=== PATIENT | male | born 1955 | race Caucasian/White ===

== ENCOUNTER → 2017-12-30 | Outpatient (CLI) | payer BC | LOC: GMAE 14:22 | PROVIDERS: ATTEND Family Medicine | DX: Z00.01 Encounter for general adult medical examination with abnormal findings (principal) ==

== ENCOUNTER → 2019-02-09 | Outpatient (CLI) | payer BC | LOC: GMAE 15:01 | PROVIDERS: ATTEND Family Medicine | DX: Z00.01 Encounter for general adult medical examination with abnormal findings (principal) ==

== ENCOUNTER → 2019-06-08 | Outpatient (CLI) | payer BC | LOC: LAB.O 17:20 | PROVIDERS: ATTEND Emergency Medicine | DX: M13.10 Monoarthritis, not elsewhere classified, unspecified site (principal); R60.9 Edema, unspecified ==

== ENCOUNTER → 2019-06-09 | Outpatient (CLI) | payer BC ==
--- NOTE | 2019-06-10 13:15 | US ---
EXAM DESCRIPTION: Lower Extremity LT (accession [id number]), Lower Extremity RT (accession [id number]): Ultrasound. CLINICAL HISTORY: LOCALIZED EDEMA COMPARISON: None Available. TECHNIQUE: Two -dimensional and doppler sonographic evaluation of the deep venous system of the bilateral lower extremities. FINDINGS: Doppler evaluation shows normal color flow and normal phasicity and augmentation of the bilateral common femoral veins, junctions with the bilateral proximal saphenous veins, femoral veins, popliteal veins, greater saphenous veins,, peroneal and posterior tibial veins. A superficial vein on the medial calf showed decreased color flow and venous waveforms. These veins showed normal occlusion with transducer pressure. Two-dimensional survey showed no echogenic clot within these veins. Echogenic thrombus was seen in the superficial medial calf vein. IMPRESSION: Duplex ultrasound evaluation of the bilateral lower extremity deep venous systems showing no evidence of thrombosis. Thrombosis in a superficial medial calf vein is not clinically significant. Electronically signed by: Best Looney MD 06/10/2019 1:13 PM TYPE CASTING MACHINE OPERATOR
--- NOTE | 2019-06-10 13:15 | US ---
EXAM DESCRIPTION: Lower Extremity LT (accession [id number]), Lower Extremity RT (accession [id number]): Ultrasound. CLINICAL HISTORY: LOCALIZED EDEMA COMPARISON: None Available. TECHNIQUE: Two -dimensional and doppler sonographic evaluation of the deep venous system of the bilateral lower extremities. FINDINGS: Doppler evaluation shows normal color flow and normal phasicity and augmentation of the bilateral common femoral veins, junctions with the bilateral proximal saphenous veins, femoral veins, popliteal veins, greater saphenous veins,, peroneal and posterior tibial veins. A superficial vein on the medial calf showed decreased color flow and venous waveforms. These veins showed normal occlusion with transducer pressure. Two-dimensional survey showed no echogenic clot within these veins. Echogenic thrombus was seen in the superficial medial calf vein. IMPRESSION: Duplex ultrasound evaluation of the bilateral lower extremity deep venous systems showing no evidence of thrombosis. Thrombosis in a superficial medial calf vein is not clinically significant. Electronically signed by: Best Looney MD 06/10/2019 1:13 PM METER AND SERVICE LINE INSPECTOR
== END ==
LOC: US 15:11
PROVIDERS: ATTEND Emergency Medicine
DX: R60.0 Localized edema (principal); I82.812 Embolism and thrombosis of superficial veins of left lower extremity